=== PATIENT | female | born 1965 | race Caucasian/White ===

== ENCOUNTER → 2016-09-30 | Outpatient (CLI) | payer BC ==
[2016-09-30 21:28] LABS: Calcium 10.7 mg/dL (8.4-10.2)
== END | disposition home or self-care (01) ==
LOC: MMGSC 10:20
PROVIDERS: ATTEND Psychiatry & Neurology Psychiatry
DX: E03.9 Hypothyroidism, unspecified (principal)
CPT/HCPCS: 36415; 82310; 84439; 84443

== ENCOUNTER → 2016-11-22 | Outpatient (CLI) | payer BC ==
[2016-11-22 18:32] LABS: CH 31.3; CHCM 32.9; HCT 40.8 % (34.0-46.0); HDW 2.04; HGB 13.5 gm/dL (11.4-16.0); MCH 31.6 pg (25.0-35.0); MCHC 33.1 g/dL (31.0-37.0); MCV 95.6 fL (80.0-100.0); Mean Platelet Volume 7.1; RBC 4.26 m/uL (3.80-5.40); RDW 13.4 % (11.5-15.5); WBC 6.7 k/uL (3.8-10.6)
== END ==
LOC: MMGSC 12:05
PROVIDERS: ATTEND Psychiatry & Neurology Psychiatry
DX: F31.60 Bipolar disorder, current episode mixed, unspecified (principal)
CPT/HCPCS: 36415; 80164; 84460; 85027

== ENCOUNTER → 2017-03-14 | Outpatient (CLI) | payer BC | END | disposition home or self-care (01) | LOC: MMGSC 14:15 | PROVIDERS: ATTEND Psychiatry & Neurology Psychiatry | DX: F31.60 Bipolar disorder, current episode mixed, unspecified (principal); Z79.899 Other long term (current) drug therapy | CPT/HCPCS: 80164 ==

== ENCOUNTER → 2017-03-14 | Outpatient (CLI) | payer BC ==
[2017-03-14 19:04] LABS: CH 32.6; CHCM 32.9; HCT 42.5 % (34.0-46.0); HGB 13.5 gm/dL (11.4-16.0); MCH 31.4 pg (25.0-35.0); MCHC 31.7 g/dL (31.0-37.0); MCV 99.2 fL (80.0-100.0); Mean Platelet Volume 7.8; RBC 4.28 m/uL (3.80-5.40); RDW 12.8 % (11.5-15.5); WBC 6.1 k/uL (3.8-10.6)
[2017-03-14 19:10] LABS: ALT 48 U/L (9-52); AST 31 U/L (14-36); Alkaline Phosphatase 70 U/L (38-126); Anion Gap 14 mmol/L; Blood Urea Nitrogen 19 mg/dL (7-17); Calcium 10.1 mg/dL (8.4-10.2); Carbon Dioxide 25 mmol/L (22-30); Chloride 101 mmol/L (98-107); Glucose 96 mg/dL (74-99); Iron 96 ug/dL (37-170); Non-African American GFR(MDRD) >60 (>60 ml/min/1.73 sqM); Potassium 4.6 mmol/L (3.5-5.1); Sodium 140 mmol/L (137-145); Total Bilirubin 0.3 mg/dL (0.2-1.3); Total Protein 6.7 g/dL (6.3-8.2)
[2017-03-14 20:13] LABS: Vitamin B12 538 pg/mL (239-931)
== END | disposition home or self-care (01) ==
LOC: MMGSC 14:01
PROVIDERS: ATTEND Surgery
DX: K90.9 Intestinal malabsorption, unspecified (principal); E55.9 Vitamin D deficiency, unspecified; E66.01 Morbid (severe) obesity due to excess calories
CPT/HCPCS: 36415; 80053; 82306; 82607; 82746; 83540; 84134; 84425; 85027

== ENCOUNTER → 2017-11-02 | Outpatient (CLI) | payer BC ==
[2017-11-02 18:32] LABS: Cholesterol 157 mg/dL (<200); HDL Cholesterol 66 mg/dL (40-60); LDL Cholesterol,Calculated 74 mg/dL (0-99); Triglycerides 86 mg/dL (<150)
== END | disposition home or self-care (01) ==
LOC: MMGSC 11:19
PROVIDERS: ATTEND Family Medicine
DX: E78.5 Hyperlipidemia, unspecified (principal)
CPT/HCPCS: 36415; 80061

== ENCOUNTER → 2018-11-09 | Outpatient (CLI) | payer BC ==
[2018-11-09 13:08] LABS: HCT 42.9 % (34.0-46.0); HGB 13.8 gm/dL (11.4-16.0); MCH 30.2 pg (25.0-35.0); MCV 94.2 fL (80.0-100.0); Mean Platelet Volume 6.7; Platelet Count 382 k/uL (150-450); RBC 4.56 m/uL (3.80-5.40); RDW 13.6 % (11.5-15.5); WBC 7.8 k/uL (3.8-10.6)
[2018-11-09 19:27] LABS: Valproic Acid (Depakene) 63.3 ug/mL (50.0-100.0)
== END ==
LOC: LABWHC1 11:34
PROVIDERS: ATTEND Psychiatry & Neurology Psychiatry
DX: F31.60 Bipolar disorder, current episode mixed, unspecified (principal); Z79.899 Other long term (current) drug therapy
CPT/HCPCS: 36415; 80164; 84460; 85027

== ENCOUNTER → 2019-04-27 | Outpatient (CLI) | payer BC ==
[2019-04-27 12:16] LABS: HCT 39.9 % (34.0-46.0); MCH 31.2 pg (25.0-35.0); MCHC 32.6 g/dL (31.0-37.0); MCV 95.7 fL (80.0-100.0); Mean Platelet Volume 5.5; Platelet Count 319 k/uL (150-450); RBC 4.17 m/uL (3.80-5.40); RDW 12.9 % (11.5-15.5); WBC 5.8 k/uL (3.8-10.6)
[2019-04-27 18:43] LABS: African American GFR (CKD) 74.5 (60.0-200.0); Anion Gap 8.9 mmol/L (4.00-12.00); Carbon Dioxide 29.1 mmol/L (21.6-31.8); Potassium 4.6 mmol/L (3.5-5.5)
== END | disposition home or self-care (01) ==
LOC: LABWHC1 11:43
PROVIDERS: ATTEND Psychiatry & Neurology Psychiatry
DX: E03.9 Hypothyroidism, unspecified (principal); F31.60 Bipolar disorder, current episode mixed, unspecified; Z79.899 Other long term (current) drug therapy
CPT/HCPCS: 36415; 80048; 80164; 84443; 84460; 85027

== ENCOUNTER → 2020-01-08 | Outpatient (CLI) | payer BC ==
[2020-01-08 13:58] LABS: HCT 39.8 % (34.0-46.0); HGB 12.8 gm/dL (11.4-16.0); MCH 31.5 pg (25.0-35.0); MCHC 32.2 g/dL (31.0-37.0); MCV 97.9 fL (80.0-100.0); Mean Platelet Volume 6.8; Platelet Count 320 k/uL (150-450); RBC 4.07 m/uL (3.80-5.40); RDW 13.2 % (11.5-15.5); WBC 6.2 k/uL (3.8-10.6)
[2020-01-08 19:26] LABS: Valproic Acid (Depakene) 49.5 ug/mL (50.0-100.0)
== END | disposition home or self-care (01) ==
LOC: LABWHC1 12:51
PROVIDERS: ATTEND Psychiatry & Neurology Psychiatry
DX: F31.60 Bipolar disorder, current episode mixed, unspecified (principal); Z79.899 Other long term (current) drug therapy
CPT/HCPCS: 36415; 80164; 84460; 85027

== ENCOUNTER 2021-10-16 11:58 | Emergency (ER) | payer BC ==
[2021-10-16 12:17] VITALS: BP 108/52; PULSE 80; RESP 16; TEMP 98.3
--- NOTE | 2021-10-16 13:11 | XR ---
EXAMINATION TYPE: XR ankle complete LT DATE OF EXAM: 10/16/2021 COMPARISON: NONE HISTORY: Pain FINDINGS: Three views of the ankle demonstrate the ankle mortise to be intact and symmetric. The joint spaces are preserved. There is a mildly displaced fracture of the distal fibula with soft tissue edema. Larg e calcaneal spurs are seen. IMPRESSION: 1. Mildly displaced fracture distal fibula.
--- NOTE | 2021-10-16 13:12 | XR ---
EXAMINATION TYPE: XR tibia fibula LT DATE OF EXAM: 10/16/2021 COMPARISON: NONE HISTORY: Pain TECHNIQUE: Two views are submitted. FINDINGS: Mildly displaced fracture distal fibula. Remaining osseous structures intact. Patellar spurring noted . IMPRESSION: 1. Mildly displaced fracture distal fibula.
--- NOTE | 2021-10-16 13:13 | XR ---
EXAMINATION TYPE: XR foot limited LT DATE OF EXAM: 10/16/2021 COMPARISON: NONE HISTORY: Pain TECHNIQUE: Two views are submitted. FINDINGS: Mildly displaced fracture distal fibula. Remaining osseous structures intact. Joint spaces are preserved. IMPRESSION: 1. Mildly displaced fracture distal fibula.
--- NOTE | 2021-10-16 13:54 | ED ---
General Adult HPI - General Chief complaint: Extremity Injury, Lower Stated complaint: Left ankle injury Time Seen by Provider: 10/16/21 12:26 Source: patient, RN notes reviewed, old records reviewed Mode of arrival: wheelchair - History of Present Illness Initial comments: Patient is a 56 year old female with CC of left ankle pain and foot pain after tripping yesterday evening. She has swelling and pain with ambulation. Denies previous ankle fractures. She does report history of ankle sprains and she was younger. Patient states that she has mild tenderness over lateral portion of her knee. Denies any other injuries related to the fall. - Related Data Allergies Allergy/AdvReac Type Severity Reaction Status Date / Time No Known Allergies Allergy Verified 10/16/21 12:18 Review of Systems ROS Statement: Those systems with pertinent positive or pertinent negative responses have been documented in the HPI. ROS Other: All systems not noted in ROS Statement are negative. Past Medical History Past Medical History: No Reported History History of Any Multi-Drug Resistant Organisms: None Reported Past Surgical History: No Surgical Hx Reported Past Psychological History: No Psychological Hx Reported Smoking Status: Never smoker Past Alcohol Use History: None Reported Past Drug Use History: None Reported General Exam - General Exam Comments Initial Comments: 56 year old female, no distress. General appearance: alert, in no apparent distress Head exam: Present: atraumatic Eye exam: Present: normal appearance, PERRL, EOMI. Absent: scleral icterus, conjunctival injection, periorbital swelling ENT exam: Present: normal exam, mucous membranes moist Neck exam: Present: normal inspection. Absent: tenderness, meningismus, lymphadenopathy Respiratory exam: Present: normal lung sounds bilaterally. Absent: respiratory distress, wheezes, rales, rhonchi, stridor Cardiovascular Exam: Present: regular rate, normal rhythm, normal heart sounds. Absent: systolic murmur, diastolic murmur, rubs, gallop, clicks GI/Abdominal exam: Present: soft, normal bowel sounds. Absent: distended, tenderness, guarding, rebound, rigid Extremities exam: Present: normal inspection, full ROM, normal capillary refill. Absent: tenderness, pedal edema, joint swelling, calf tenderness Left Lower Leg exam: Present: normal inspection, full ROM Ankle exam: Present: full ROM, tenderness, swelling (lateral malleolus). Absent: normal inspection Back exam: Present: normal inspection Course Vital Signs 10/16/21 12:12 Temperature 98.3 F Pulse Rate 80 Respiratory 16 Rate Blood Pressure 108/52 O2 Sat by Pulse 96 Oximetry Procedures - Orthopedic Splinting/Casting Injury #1 Side: left Lower Extremity Injury Location: short leg, ankle Lower Extremity Immobilizer: posterior splint, stirrup splint Other Orthopedic Equipment: crutches Additional Comments: Patient is neurovascularly intact. Medical Decision Making - Medical Decision Making 56-year-old female presents with left lateral ankle pain to her fall. Patient is neurovascularly intact, centers and swelling over the lateral malleolus. X- rays were completed and show evidence of a distal fibular fracture. Patient was placed in a posterior and stirrup splint. Patient has follow up with residential support specialist and use crutches for ambulation. Advised to take Motrin Tylenol for pain. Discussed return parameters - Radiology Data Radiology results: report reviewed Minimally angulated/displaced distal fibula fracture. Disposition Clinical Impression: Fracture of distal fibula Disposition: HOME SELF-CARE Condition: Good Instructions (If sedation given, give patient instructions): Ankle Fracture (ED) Additional Instructions: Patient advised to keep her foot up and elevated. Patient should take Motrin Tylenol for pain. Patient should rest, and use crutches for ambulation. Follow up with orthopedic on Tuesday. Is patient prescribed a controlled substance at d/c from ED?: No Referrals: Tarah Schwartz MD [Primary Care Provider] - 1-2 days Sharla Hargrove DO [Doctor of Osteopathic Medicine] - 1-2 days Time of Disposition: 13:52
== END 2021-10-16 14:21 | disposition home or self-care (01) ==
LOC: EC 11:58
DX: S82.832A Other fracture of upper and lower end of left fibula, initial encounter for closed fracture (principal); W01.0XXA Fall on same level from slipping, tripping and stumbling without subsequent striking against object, initial encounter
CPT/HCPCS: 29515; 99283

== ENCOUNTER → 2021-11-10 | Outpatient (CLI) | payer BC ==
[2021-11-10 23:00] LABS: HCT 39.4 % (37.2-46.3); HGB 12.5 g/dL (12.0-15.0); MCHC 31.7 g/dL (32.0-37.0); MCV 94.5 fL (80.0-97.0); Mean Platelet Volume 9.5 fL (9.5-12.2); NRBC Per 100 WBC 0 /100 WBCS (0.0-0.0); Platelet Count 355 X 10*3/uL (140-440); RBC 4.17 X 10*6/uL (4.10-5.20); RDW 13.5 % (11.5-14.5); WBC 7.28 X 10*3/uL (4.50-10.00)
[2021-11-10 23:14] LABS: Albumin 4.5 g/dL (3.8-4.9); Albumin/Globulin Ratio 1.8 (1.60-3.17); Anion Gap 14.7 mmol/L (10.00-18.00); BUN/Creat Ratio 14.87 Ratio (12.00-20.00); Blood Urea Nitrogen 13.1 mg/dL (9.0-27.0); Calcium 10.2 mg/dL (8.7-10.3); Carbon Dioxide 22.5 mmol/L (20.0-27.5); Globulin 2.5 g/dL (1.6-3.3); Non-African American GFR(CKD) 73.4 (60.0-200.0); Potassium 4.1 mmol/L (3.5-5.5); T4, Free (Free Thyroxine) 1.27 ng/dL (0.800-1.800); Total Bilirubin 0.2 mg/dL (0.30-1.20); Total Protein 6.9 g/dL (6.2-8.2)
[2021-11-11 04:04] LABS: Valproic Acid (Depakene) 31.8 ug/mL (50.0-100.0)
== END | disposition home or self-care (01) ==
LOC: LABWHC1 15:35
PROVIDERS: ATTEND Psychiatry & Neurology Psychiatry
DX: F31.60 Bipolar disorder, current episode mixed, unspecified (principal)
CPT/HCPCS: 36415; 80053; 80164; 80175; 84439; 84443; 85027

== ENCOUNTER → 2022-02-18 | Outpatient (CLI) | payer BC | END | disposition home or self-care (01) | LOC: LABWHC1 09:19 | PROVIDERS: ATTEND Psychiatry & Neurology Psychiatry | DX: F31.60 Bipolar disorder, current episode mixed, unspecified (principal) | CPT/HCPCS: 36415; 80164 ==